=== PATIENT | female | born 1980 | race Caucasian/White ===

== ENCOUNTER 2020-12-18 15:11 | Emergency (ER) | payer SELFPAY ==
[~2020-12-18] VITALS: Ht 167.6 cm; Wt 86.4 kg
[2020-12-18 16:08] LABS: COLLECTION METHOD CLEAN CATCH
[2020-12-18 16:19] LABS: PH 5 (5-8); URINE APPEARANCE Hazy; URINE BACTERIA Rare /hpf; URINE BILIRUBIN Negative (NEGATIVE); URINE BLOOD 3+ (NEGATIVE); URINE CALCIUM OXALATE CRYSTAL Present /hpf; URINE COLOR Yellow; URINE GLUCOSE Negative (NEGATIVE); URINE KETONE Negative (NEGATIVE); URINE LEUKOCYTE ESTERASE Negative (NEGATIVE); URINE NITRATE Negative (NEGATIVE); URINE PROTEIN(semi-quant) Negative (NEGATIVE); URINE RBC >50 /hpf; URINE UROBILINOGEN Negative (NEGATIVE)
[2020-12-18] MEDS ORDERED: CYMBALTA 60MG60 MG PO (16:35)
[2020-12-18 16:48] LABS: BASO # 0.1 (0.0-0.2); BASO % 0.7 % (0.0-2.0); EOS # 0.2 (0.0-0.7); EOS % 2.7 % (0-4.0); GRAN # 3.3 (1.4-6.5); GRAN % 44.7 % (42.2-75.2); HEMATOCRIT 41.4 % (37.0-47.0); HEMOGLOBIN 13.2 g/dl (12.5-16.0); LYMPH % 40.8 % (20.0-51.0); MEAN CELL VOLUME 90 fl (80.0-100.0); MEAN CORPUSCULAR HEMOGLOBIN 29 pg (27.0-31.0); MEAN CORPUSCULAR HGB CONC 32 g/dl (33.0-37.0); MEAN PLATELET VOLUME 10.5 fl (7.4-10.4); MONO # 0.8 (0.1-0.6); MONO % 10.8 % (1.7-9.3); PLATELET COUNT 295 K/mm3 (130-400); RED BLOOD COUNT 4.58 M/mm3 (4.10-5.30)
[2020-12-18 17:03] LABS: ALBUMIN 4.4 gm/dL (3.5-5.0); BILIRUBIN,TOTAL 0.3 mg/dL (0.0-1.0); C-REACTIVE PROTEIN 0.7 mg/dL (0.0-0.9); CALCIUM 9.8 mg/dL (8.4-10.2); CREATININE, serum 0.84 (0.52-1.25); POTASSIUM 4.1 mmol/L (3.4-5.0); TOTAL PROTEIN 7.9 gm/dL (6.4-8.2)
[2020-12-18] MEDS ORDERED: LEVAQUIN 5500 MG/TA1 PO (18:56)
[2020-12-18] MEDS ORDERED: NORCO 325 MG-51 TAB PO (18:56)
[2020-12-18 19:14] VITALS: BP 128/78; PULSE 76; TEMP 98.2
== END 2020-12-18 19:14 | disposition home or self-care (01) ==
LOC: COL.ER 15:11
PROVIDERS: Emergency Medicine; Nurse Practitioner
DX: N39.0 Urinary tract infection, site not specified (principal); F17.210 Nicotine dependence, cigarettes, uncomplicated; Z90.49 Acquired absence of other specified parts of digestive tract; Z90.710 Acquired absence of both cervix and uterus; Z98.84 Bariatric surgery status
CPT/HCPCS: J1170; J2405; J7030